=== PATIENT | male | born 2000 | race Hispanic/Latino ===

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

== ENCOUNTER 2022-06-22 13:52 | Emergency (ER) | payer BC, MEDICAID ==
[~2022-06-22] VITALS: Ht 175.3 cm; Wt 59.0 kg
[2022-06-22 14:48] VITALS: BP 108/74
== END 2022-06-22 14:45 | disposition home or self-care (01) ==
LOC: EDH 13:52
DX: H57.11 Ocular pain, right eye (principal)
CPT/HCPCS: 99282

== ENCOUNTER 2023-02-04 10:20 | Emergency (ER) | payer BC, MEDICAID ==
[~2023-02-04] VITALS: Ht 175.3 cm; Wt 57.6 kg
[2023-02-04 10:50] VITALS: BP 131/79
[2023-02-04] MEDS ORDERED: IBUPROFEN 600 MG TABLET PO ONE (11:30)
== END 2023-02-04 11:41 | disposition home or self-care (01) ==
LOC: EDH 10:20
DX: J06.9 Acute upper respiratory infection, unspecified (principal); S61.239A Puncture wound without foreign body of unspecified finger without damage to nail, initial encounter; Z20.822 Contact with and (suspected) exposure to COVID-19; X58.XXXA Exposure to other specified factors, initial encounter; Y93.89 Activity, other specified; Y92.89 Other specified places as the place of occurrence of the external cause; Y99.8 Other external cause status
CPT/HCPCS: 99283; 87635; 87880; 87804 ×2; C9803

== ENCOUNTER 2023-04-30 18:10 | Emergency (ER) | payer BC, MEDICAID ==
[~2023-04-30] VITALS: Ht 175.3 cm; Wt 59.0 kg
[2023-04-30 18:15] VITALS: BP 118/75
[2023-04-30] MEDS ORDERED: HYDR28.32 TP (19:57)
[2023-04-30] MEDS ORDERED: DIPH-1242 PO (19:58)
== END 2023-04-30 20:04 | disposition home or self-care (01) ==
LOC: EDH 18:10
DX: S00.86XA Insect bite (nonvenomous) of other part of head, initial encounter (principal); X58.XXXA Exposure to other specified factors, initial encounter
CPT/HCPCS: 99282

== ENCOUNTER 2024-04-28 17:54 | Emergency (ER) | payer BC ==
[~2024-04-28] VITALS: Ht 175.3 cm; Wt 59.0 kg
[~2024-04-28 17:54] MED LIST: DIPH-1242 PO; HYDR28.32 TP
[2024-04-28] MEDS: 0.9%NACL 1000ML 1,000 ML IV ONE (18:29)
[2024-04-28 18:46] LABS: BASOPHILS # (AUTO) 0.06 K/uL (0.00-0.20); BASOPHILS % (AUTO) 1.2 % (0.0-5.0); EOSINOPHILS # (AUTO) 0.16 K/uL (0.00-0.70); EOSINOPHILS % (AUTO) 3.1 % (0.0-8.0); HEMATOCRIT 41.7 % (42-54); IMMATURE GRANULOCYTE ABSOLUTE 0.01 K/uL (0-1); LYMPHOCYTES # (AUTO) 1.8 K/uL (1.0-4.8); LYMPHOCYTES % (AUTO) 35.6 % (21.0-51.0); MEAN CORPUSCULAR HEMOGLOBIN 27.8 pg (27.0-33.0); MEAN CORPUSCULAR HGB CONC 31.9 g/dL (32.0-36.0); MEAN CORPUSCULAR VOLUME 87.1 fL (80-100); MONOCYTES # (AUTO) 0.3 K/uL (0.1-1.0); MONOCYTES % (AUTO) 4.9 % (3.0-13.0); NEUTROPHILS # (AUTO) 2.8 K/uL (1.8-7.7); PLATELET COUNT (AUTO) 221 K/uL (130-400); RED BLOOD CELL COUNT(AUTO) 4.79 MIL/uL (4.50-6.20); RED CELL DISTRIBUTION WIDTH 13.9 % (11.0-15.5); WHITE BLOOD COUNT (AUTO) 5.1 K/uL (4.8-10.8)
[2024-04-28 19:00] LABS: POTASSIUM 3.6 mmol/L (3.5-5.1)
[2024-04-28 19:04] LABS: ALBUMIN 4.3 g/dL (3.5-5.0); BILIRUBIN,TOTAL 0.6 mg/dL (0.2-1.0); TOTAL PROTEIN, SERUM 7.7 g/dL (6.0-8.3)
[2024-04-28 19:06] LABS: APPEARANCE,URINE CLOUDY (CLEAR); BILIRUBIN,URINE NEGATIVE (NEGATIVE); COLOR,URINE YELLOW (YELLOW); GLUCOSE, URINE (UA) NEGATIVE (NEGATIVE); KETONES,URINE NEGATIVE (NEGATIVE); LEUKOCYTE ESTERASE ,URINE NEGATIVE Leu/uL (NEGATIVE); NITRATE,URINE NEGATIVE (NEGATIVE); OCCULT BLOOD,URINE NEGATIVE (NEGATIVE); PROTEIN,URINE 20 mg/dL (NEGATIVE)
[2024-04-28 19:08] LABS: ADD UA MICROSCOPIC YES
[2024-04-28 19:13] LABS: MUCUS,URINE RARE LPF (None Seen); SQUAMOUS EPITHELIAL CELL,UR RARE /HPF (0-2); UNCLASSIFIED CRYSTAL 5 /HPF (None Seen); YEAST,URINE BUDDING MOD /HPF (None Seen)
[2024-04-28 19:56] VITALS: BP 114/75; PULSE 60; RESP 18; O2SAT 100
== END 2024-04-28 20:18 | disposition home or self-care (01) ==
LOC: EDH 17:54
DX: E86.0 Dehydration (principal)
CPT/HCPCS: 99283; 96360; 82550; 80053; 85025; 87088; 81001; 36415; J7030

== ENCOUNTER 2024-05-30 17:01 | Emergency (ER) | payer BC ==
[~2024-05-30] VITALS: Ht 175.3 cm; Wt 59.0 kg
[2024-05-30 17:03] VITALS: BP 123/77; PULSE 98; RESP 16
[2024-05-30 17:19] LABS: BASOPHILS # (AUTO) 0.03 K/uL (0.00-0.20); BASOPHILS % (AUTO) 0.5 % (0.0-5.0); EOSINOPHILS # (AUTO) 0.19 K/uL (0.00-0.70); EOSINOPHILS % (AUTO) 3.2 % (0.0-8.0); HEMATOCRIT 41.3 % (42-54); IMMATURE GRANULOCYTE ABSOLUTE 0.01 K/uL (0-1); LYMPHOCYTES # (AUTO) 2.3 K/uL (1.0-4.8); LYMPHOCYTES % (AUTO) 38.8 % (21.0-51.0); MEAN CORPUSCULAR HEMOGLOBIN 27.3 pg (27.0-33.0); MEAN CORPUSCULAR HGB CONC 31.7 g/dL (32.0-36.0); MEAN CORPUSCULAR VOLUME 86.2 fL (80-100); MONOCYTES # (AUTO) 0.4 K/uL (0.1-1.0); MONOCYTES % (AUTO) 6.8 % (3.0-13.0); NEUTROPHILS % (AUTO) 50.5 % (40.0-77.0); PLATELET COUNT (AUTO) 220 K/uL (130-400); RED BLOOD CELL COUNT(AUTO) 4.79 MIL/uL (4.50-6.20); RED CELL DISTRIBUTION WIDTH 13.7 % (11.0-15.5); WHITE BLOOD COUNT (AUTO) 5.9 K/uL (4.8-10.8)
[2024-05-30 17:29] LABS: POTASSIUM 3.7 mmol/L (3.5-5.1)
[2024-05-30 17:34] LABS: ALBUMIN 4.1 g/dL (3.5-5.0); BILIRUBIN,TOTAL 0.4 mg/dL (0.2-1.0); TOTAL PROTEIN, SERUM 7.8 g/dL (6.0-8.3)
[2024-05-30] MEDS: 0.9%NACL 1000ML 1,000 ML IV STA (19:48)
[2024-05-30] MEDS: MECLIZINE HCL 25 MG TABLET PO STA (19:48)
== END 2024-05-30 20:23 | disposition home or self-care (01) ==
LOC: EDH 17:01
DX: R42 Dizziness and giddiness (principal); E16.2 Hypoglycemia, unspecified
CPT/HCPCS: 99284; 96360; 70450; 80053; 85025; 36415; J7030

== ENCOUNTER 2024-06-04 12:28 | Emergency (ER) | payer BC ==
[~2024-06-04] VITALS: Ht 175.3 cm; Wt 59.0 kg
[2024-06-04 13:16] LABS: BASOPHILS # (AUTO) 0.04 K/uL (0.00-0.20); EOSINOPHILS # (AUTO) 0.07 K/uL (0.00-0.70); EOSINOPHILS % (AUTO) 1.8 % (0.0-8.0); HEMATOCRIT 43.5 % (42-54); IMMATURE GRANULOCYTE ABSOLUTE 0.01 K/uL (0-1); LYMPHOCYTES # (AUTO) 1.3 K/uL (1.0-4.8); LYMPHOCYTES % (AUTO) 34.4 % (21.0-51.0); MEAN CORPUSCULAR HEMOGLOBIN 27.2 pg (27.0-33.0); MEAN CORPUSCULAR HGB CONC 32.4 g/dL (32.0-36.0); MONOCYTES # (AUTO) 0.2 K/uL (0.1-1.0); MONOCYTES % (AUTO) 5.7 % (3.0-13.0); NEUTROPHILS # (AUTO) 2.2 K/uL (1.8-7.7); NEUTROPHILS % (AUTO) 56.8 % (40.0-77.0); PLATELET COUNT (AUTO) 253 K/uL (130-400); RED BLOOD CELL COUNT(AUTO) 5.18 MIL/uL (4.50-6.20); WHITE BLOOD COUNT (AUTO) 3.8 K/uL (4.8-10.8)
[2024-06-04] MEDS: ONDANSETRON ODT 4MG TAB SL ONE (13:44)
[2024-06-04] MEDS: 0.9%NACL 1000ML 1,000 ML IV ONE (13:44)
[2024-06-04 13:55] LABS: ALBUMIN 4.2 g/dL (3.5-5.0); BILIRUBIN,TOTAL 0.6 mg/dL (0.2-1.0); CREATININE 0.9 mg/dL (0.5-1.3); POTASSIUM 3.7 mmol/L (3.5-5.1); TOTAL PROTEIN, SERUM 7.9 g/dL (6.0-8.3)
[2024-06-04] MEDS: KETOROLAC 15MG/ML VIAL (15MG/ML) IV ONE (15:43)
[2024-06-04 16:03] VITALS: BP 123/68; PULSE 86; RESP 18; O2SAT 99
== END 2024-06-04 16:06 | disposition home or self-care (01) ==
LOC: EDH 12:28
DX: R51.9 Headache, unspecified (principal); R11.0 Nausea; Z79.899 Other long term (current) drug therapy
CPT/HCPCS: 99284; 96374; 96361; 82550; 80053; 85025; 36415; J7030; J1885

== ENCOUNTER 2024-08-10 19:24 | Emergency (ER) | payer BC ==
[~2024-08-10] VITALS: Ht 175.3 cm; Wt 59.0 kg
[2024-08-10] MEDS: ibuPROFEN 600 MG TABLET PO ONE (21:56)
[2024-08-10 22:12] VITALS: BP 135/68; PULSE 86; RESP 16; TEMP 98; O2SAT 100
== END 2024-08-10 22:05 | disposition home or self-care (01) ==
LOC: EDH 19:24
DX: S90.122A Contusion of left lesser toe(s) without damage to nail, initial encounter (principal); W22.8XXA Striking against or struck by other objects, initial encounter; Y93.89 Activity, other specified; Y92.89 Other specified places as the place of occurrence of the external cause; Y99.8 Other external cause status
CPT/HCPCS: 73660

== ENCOUNTER 2024-09-16 17:29 | Emergency (ER) | payer BC, OTHER ==
[~2024-09-16] VITALS: Ht 175.3 cm; Wt 59.0 kg
[2024-09-16 17:36] VITALS: BP 139/71; PULSE 96; RESP 16; TEMP 99.5; O2SAT 97
[2024-09-16] MEDS ORDERED: MUPI22O TP (17:41)
[2024-09-16] MEDS: ibuPROFEN 800 MG TAB PO ONE (17:44)
== END 2024-09-16 17:56 | disposition home or self-care (01) ==
LOC: EDH 17:29
DX: S80.811A Abrasion, right lower leg, initial encounter (principal); X17.XXXA Contact with hot engines, machinery and tools, initial encounter; Y93.89 Activity, other specified; Y92.89 Other specified places as the place of occurrence of the external cause; Y99.8 Other external cause status

== ENCOUNTER 2025-05-01 15:14 | Emergency (ER) | payer BC ==
[~2025-05-01] VITALS: Ht 175.3 cm; Wt 61.8 kg
[~2025-05-01 15:14] MED LIST changes: +MUPI22O TP
[2025-05-01 15:52] LABS: BASOPHILS # (AUTO) 0.01 K/uL (0.00-0.20); BASOPHILS % (AUTO) 0.1 % (0.0-5.0); EOSINOPHILS # (AUTO) 0.06 K/uL (0.00-0.70); EOSINOPHILS % (AUTO) 0.7 % (0.0-8.0); HEMATOCRIT 45.8 % (42-54); IMMATURE GRANULOCYTE ABSOLUTE 0.03 K/uL (0-1); LYMPHOCYTES # (AUTO) 0.3 K/uL (1.0-4.8); LYMPHOCYTES % (AUTO) 3.7 % (21.0-51.0); MEAN CORPUSCULAR HEMOGLOBIN 27.1 pg (27.0-33.0); MEAN CORPUSCULAR HGB CONC 31.4 g/dL (32.0-36.0); MEAN CORPUSCULAR VOLUME 86.3 fL (79-99); MONOCYTES # (AUTO) 0.2 K/uL (0.1-1.0); MONOCYTES % (AUTO) 2.7 % (3.0-13.0); NEUTROPHILS # (AUTO) 7.6 K/uL (1.8-7.7); NEUTROPHILS % (AUTO) 92.4 % (40.0-77.0); PLATELET COUNT (AUTO) 225 K/uL (130-400); RED BLOOD CELL COUNT(AUTO) 5.31 MIL/uL (4.50-6.20); WHITE BLOOD COUNT (AUTO) 8.3 K/uL (4.8-10.8)
[2025-05-01 16:03] LABS: CREATININE 0.9 mg/dL (0.5-1.3)
[2025-05-01 16:06] LABS: RAPID GROUP A STREP negative (NEGATIVE)
[2025-05-01 16:15] LABS: COVID19 (SARS ANTIGEN RAPID) PRESUMPTIVE NEGATIVE (NEGATIVE); INFLUENZA TYPE A Negative For Type A (NEGATIVE); INFLUENZA TYPE B Negative For Type B (NEGATIVE)
[2025-05-01] MEDS: ondanSETRON ODT 4MG TAB SL ONE (16:32)
[2025-05-01] MEDS: PANTOPrazole 40 MG TAB DR PO ONE (16:32)
[2025-05-01] MEDS: 0.9%NACL 1000ML 1,000 ML IV ONE (17:02)
--- NOTE | 2025-05-01 18:49 | ERN ---
General Chief Complaint: Headache Stated Complaint: HEADACHE Time Seen by MD: 15:24 History of Present Illness Allergies: Coded Allergies: No Known Drug Allergies (Unverified Allergy, Unknown, 05/12/20) Home Meds Active Scripts Mupirocin (Bactroban 2% Oint) 2 % Oint, 1 APPL TP TID for 5 Days, #15 GM 0 Refills apply to affected area(s) Prov:JOÃO GUIDRY RUBY ON RAILS DEVELOPER 09/16/24 Diphenhydramine HCl (Benadryl) 25 Mg Cap, 25 MG PO TID for 7 Days, #21 CAP Prov:AFTAB RIVAS V EXPLOSIVE ORDNANCE SPECIALIST 04/30/23 Hydrocortisone (Hydrocortisone 1% 28.35GM) 28.35 Gm Crm, 1 GM TP BID for 10 Days, #1 TUBE Prov:AFTAB RIVAS V EXPLOSIVE ORDNANCE SPECIALIST 04/30/23 Past Medical History Past Medical History: Other Medical History Other: dehydration. ryne Past Surgical History: None Results Laboratory and Microbiology Lab and Micro Result Laboratory Tests Test 05/01/25 15:31 05/01/25 15:42 Influenza Type A Antigen Negative For Type A Influenza Type B Antigen Negative For Type B SARS-CoV-2 Antigen (Rapid) PRESUMPTIVE NEGATIVE Group A Streptococcus Rapid negative (NEGATIVE) White Blood Count 8.3 K/uL (4.8-10.8) Red Blood Count 5.31 MIL/uL (4.50-6.20) Hemoglobin 14.4 g/dL (14.0-18.0) Hematocrit 45.8 % (42-54) Mean Corpuscular Volume 86.3 fL (79-99) Mean Corpuscular Hemoglobin 27.1 pg (27.0-33.0) Mean Corpuscular Hemoglobin Concent 31.4 g/dL (32.0-36.0) L Red Cell Distribution Width 14.0 % (11.0-15.5) Platelet Count 225 K/uL (130-400) Mean Platelet Volume 9.8 fL (7.5-10.5) Immature Granulocyte % (Auto) 0.4 % (0-1) Neutrophils (%) (Auto) 92.4 % (40.0-77.0) H Lymphocytes (%) (Auto) 3.7 % (21.0-51.0) L Monocytes (%) (Auto) 2.7 % (3.0-13.0) L Eosinophils (%) (Auto) 0.7 % (0.0-8.0) Basophils (%) (Auto) 0.1 % (0.0-5.0) Neutrophils # (Auto) 7.6 K/uL (1.8-7.7) Lymphocytes # (Auto) 0.3 K/uL (1.0-4.8) L Monocytes # (Auto) 0.2 K/uL (0.1-1.0) Eosinophils # (Auto) 0.06 K/uL (0.00-0.70) Basophils # (Auto) 0.01 K/uL (0.00-0.20) Absolute Immature Granulocyte (auto 0.03 K/uL (0-1) Nucleated Red Blood Cells 0.0 % (0.0-0.19) White Cell Morphology Comment See comments Sodium Level 142 mmol/L (136-145) Potassium Level 4.0 mmol/L (3.5-5.1) Chloride Level 107 mmol/L (101-111) Carbon Dioxide Level 27 mmol/L (21-32) Blood Urea Nitrogen 14 mg/dL (7-18) Creatinine 0.9 mg/dL (0.5-1.3) Glomerular Filtration Rate Calc 124 mL/min (>90) Random Glucose 104 mg/dL (70-105) Total Calcium 9.2 mg/dL (8.5-10.1) ED Course Orders Procedure Category Date Status Time Cbc With Differential LAB 05/01/25 Complete 15:32 Basic Metabolic Panel LAB 05/01/25 Complete 15:32 Urinalysis LAB 05/01/25 Logged W/Microscopic 15:32 Covid19 (Sars Antigen LAB 05/01/25 Complete Rapid) 15:32 Influenza Type A & B, LAB 05/01/25 Complete Rapid 15:32 Rapid (Group A Strep) LAB 05/01/25 Complete 15:32 Pantoprazole 40mg Tab PHA 05/01/25 Complete (Protonix 40mg Tab 16:00 Ondansetron Odt 4mg PHA 05/01/25 Complete Tab (Zofran 4mg Odt) 16:00 0.9%Nacl 1000ml (Ns PHA 05/01/25 Complete 1000ml) 17:00 Current Medications Medications (Trade) Dose Ordered Sig/Saravanan Route PRN Reason Start Time Stop Time Status Last Admin Dose Admin Ondansetron HCl (zoFRAN 4MG ODT) 4 mg ONCE ONCE SL 05/01/25 16:00 05/01/25 16:03 DC 05/01/25 16:32 Pantoprazole Sodium (PROTonix 40MG TAB) 40 mg ONCE ONCE PO 05/01/25 16:00 05/01/25 16:03 DC 05/01/25 16:32 Sodium Chloride 1,000 ml @ 0 mls/hr ONCE ONCE IV 05/01/25 17:00 05/01/25 17:01 DC 05/01/25 17:02 Vital Signs Date Time Temp Pulse Resp B/P (MAP) Pulse Ox O2 Delivery O2 Flow Rate FiO2 05/01/25 15:30 99.3 95 16 100/68 99 Room Air* 0 21 05/01/25 15:26 99.3 95 16 100/68 99 Room Air 0 DX & DISP Disposition: Discharge Departure Impression: Primary Impression: Fatigue Additional Impression: Wellness examination Condition: Stable Additional Instructions: Discharge home. Rest. Follow up with primary care DrNevaeh in 24 hours. Return to the ER for any acute changes or worsening symptoms. If any medications were prescribed take as directed. Okay to continue home medications unless otherwise discussed during your visit in the emergency room today. Patient was also advised to follow-up with primary care physician in 1 to 2 days for continued monitoring. Referrals: MARTY ALCAZAR MD (PCP) I performed the substantive portion of the visit. I have reviewed and personally made and approve the management plan that is documented in the notes by myself or the [facility]. I acknowledge full responsibility for the patient's management plan. ANH ROBERSON May 01, 2025 18:49
[2025-05-01 18:56] VITALS: BP 114/65; PULSE 85; RESP 17; TEMP 97.6; O2SAT 96
== END 2025-05-01 18:59 | disposition home or self-care (01) ==
LOC: EDH 15:14
DX: R51.9 Headache, unspecified (principal); R53.83 Other fatigue; Z20.822 Contact with and (suspected) exposure to COVID-19
CPT/HCPCS: 99283; 96360; 87426; 80048; 85025; 87880; 87804 ×2; 36415; J7030

== ENCOUNTER 2025-07-05 17:40 | Emergency (ER) | payer BC ==
[~2025-07-05] VITALS: Ht 175.3 cm; Wt 59.0 kg
[2025-07-05 17:55] VITALS: BP 130/80; PULSE 78; RESP 16; TEMP 98.1; O2SAT 99
--- NOTE | 2025-07-05 18:00 | ERN ---
ED Note History of Present Illness Stated Complaint: NEAR SYNCOPE Chief Complaint: Other Problems Time Seen by MD: 17:42 Allergies: Coded Allergies: No Known Drug Allergies (Unverified Allergy, Unknown, 05/12/20) Home Meds Active Scripts Mupirocin (Bactroban 2% Oint) 2 % Oint, 1 APPL TP TID for 5 Days, #15 GM 0 Refills apply to affected area(s) Prov:JOÃO GUIDRY ASSOCIATE DIRECTOR 09/16/24 Diphenhydramine HCl (Benadryl) 25 Mg Cap, 25 MG PO TID for 7 Days, #21 CAP Prov:AFTAB RIVAS V CIGAR HEAD PEGGER 04/30/23 Hydrocortisone (Hydrocortisone 1% 28.35GM) 28.35 Gm Crm, 1 GM TP BID for 10 Days, #1 TUBE Prov:AFTAB RIVAS V CIGAR HEAD PEGGER 04/30/23 Past Medical History Past Medical History: No Pertinent History, Other Additional Past Medical Hx: dehydration. ryne Surgical History: None Review of System Dictation CONSTITUTIONAL: NEGATIVE FOR FEVER,CHILLS, AND WEIGHT LOSS EYES: NEGATIVE FOR INJURY, PAIN,REDNESS, AND DISCHARGE ENT: NEGATIVE FOR INJURY,PAIN OR SWELLING CARDIOVASCULAR: NEGATIVE FOR CHEST PAIN, PALPITATIONS, AND EDEMA RESPIRATORY: NEGATIVE FOR SHORTNESS OF BREATH, COUGH, WHEEZING, AND PLEURITIC CHEST PAIN ABDOMEN/GI: NEGATIVE FOR ABDOMINAL PAIN, NAUSEA, VOMITING, DIARRHEA, AND CONSTIPATION BACK: NEGATIVE FOR INJURY AND PAIN : NEGATIVE FOR INJURY, BLEEDING AND DISCHARGE MS/EXTREMITY: NEGATIVE FOR INJURY AND DEFORMITY SKIN: NEGATIVE FOR RASH, AND DISCOLORATION NEURO: NEGATIVE FOR HEADACHE, NUMBNESS, TINGLING, AND SEIZURE. POSITIVE WEAKNESS PSYCH: NEGATIVE FOR SUICIDE IDEATION, HOMICIDAL IDEATION, AND HALLUCINATIONS ALLERGY/IMMUNOLOGY: NEGATIVE FOR HIVES, RASH, AND ALLERGIES Initial Vital Sign VS Vital Signs Date Time Temp Pulse Resp B/P (MAP) Pulse Ox O2 Delivery O2 Flow Rate FiO2 07/05/25 17:41 97.7 81 18 131/82 99 Room Air 07/05/25 17:55 0 21 Physical Exam Dictation GENERAL: AWAKE, ALERT, NAD HEAD/FACE: NORMOCEPHALIC, ATRAUMATIC EYES: PERRL, EOMI, VISION AT BASELINE ENT: ORAL CAVITY CLEAR, TMS CLEAR, NO SIGNS OF INFECTION NECK: TRACHEA MIDLINE, SUPPLE, NO NUCHAL RIGIDITY CARDIOVASCULAR: RRR, NORMAL S1/S2, NO MRGS, NO JVD RESPIRATORY: CTAB, NO RESPIRATORY DISTRESS, NO RALES OR WHEEZES ABDOMEN: SOFT, NON-TENDER, NON-DISTENDED, NORMAL BOWEL SOUNDS, NO GUARDING OR REBOUND. SKIN: WARM, DRY, NORMAL TURGOR, NO RASH MS/EXTREMITY: PULSES EQUAL, NO CYANOSIS, NEUROVASCULAR INTACT, FROM NEURO: COAX4, GCS 15, STRENGTH 5/5, CN 2-12 INTACT, NORMAL CEREBELLAR EXAM, NORMAL GAIT, PSYCH: NORMAL BEHAVIOR, MOOD, AND AFFECT NORMAL Results (Laboratory/Radiology) Laboratory/Radiology Laboratory Tests Test 07/05/25 18:04 White Blood Count 6.0 K/uL (4.8-10.8) Red Blood Count 5.15 MIL/uL (4.50-6.20) Hemoglobin 14.0 g/dL (14.0-18.0) Hematocrit 43.4 % (42-54) Mean Corpuscular Volume 84.3 fL (79-99) Mean Corpuscular Hemoglobin 27.2 pg (27.0-33.0) Mean Corpuscular Hemoglobin Concent 32.3 g/dL (32.0-36.0) Red Cell Distribution Width 14.2 % (11.0-15.5) Platelet Count 239 K/uL (130-400) Mean Platelet Volume 9.6 fL (7.5-10.5) Immature Granulocyte % (Auto) 0.3 % (0-1) Neutrophils (%) (Auto) 49.0 % (40.0-77.0) Lymphocytes (%) (Auto) 26.6 % (21.0-51.0) Monocytes (%) (Auto) 5.3 % (3.0-13.0) Eosinophils (%) (Auto) 17.8 % (0.0-8.0) H Basophils (%) (Auto) 1.0 % (0.0-5.0) Neutrophils # (Auto) 3.0 K/uL (1.8-7.7) Lymphocytes # (Auto) 1.6 K/uL (1.0-4.8) Monocytes # (Auto) 0.3 K/uL (0.1-1.0) Eosinophils # (Auto) 1.07 K/uL (0.00-0.70) H Basophils # (Auto) 0.06 K/uL (0.00-0.20) Absolute Immature Granulocyte (auto 0.02 K/uL (0-1) Nucleated Red Blood Cells 0.0 % (0.0-0.19) White Cell Morphology Comment See comments Sodium Level 142 mmol/L (136-145) Potassium Level 4.0 mmol/L (3.5-5.1) Chloride Level 105 mmol/L (101-111) Carbon Dioxide Level 28 mmol/L (21-32) Blood Urea Nitrogen 14 mg/dL (7-18) Creatinine 1.0 mg/dL (0.5-1.3) Glomerular Filtration Rate Calc 109 mL/min (>90) Random Glucose 109 mg/dL (70-105) H Total Calcium 9.4 mg/dL (8.5-10.1) ED Course ED Course Orders Procedure Category Date Status Time Cbc With Differential LAB 07/05/25 Complete 17:57 Basic Metabolic Panel LAB 07/05/25 Complete 17:57 12 Lead Ekg Tracing- EKG 07/05/25 Logged Technical 17:57 Vital Signs Date Time Temp Pulse Resp B/P (MAP) Pulse Ox O2 Delivery O2 Flow Rate FiO2 07/05/25 17:55 98.1 78 16 130/80 99 Room Air* 0 21 07/05/25 17:41 97.7 81 18 131/82 99 Room Air HEART Score Response (Comments) Value EKG: Normal 0 Total 0 Medical Decision Making MDM 24-YEAR-OLD MALE PRESENTS TO ER COMPLAINS OF FEELING WEAK AT WORK. 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 PATIENT STATES HE WAS DRINKING WATER ALL DAY AND WAS TAKING BREAKS EVERY 30 MINUTES BUT IT WAS STILL HOT. PATIENT WILL GET CBC BMP AND AN EKG. ALL LABS AND EKG NORMAL. PATIENT ADVISED TO STAY WELL HYDRATED POSSIBLY DRINK GATORADE INSTEAD OF WATER AND TAKE MORE FREQUENT BREAKS. PATIENT VSS, NAD, NONTOXIC, STABLE FOR DISCHARGE. PT GIVEN DISCHARGE INSTRUCTIONS IN LAYMAN TERMS AND UNDERSTOOD, ALL QUESTIONS ANSWERED. PT WILL FOLLOW UP WITH PCP AND RETURN TO THE ER IF WORSE. DX & DISP Disposition: Discharge Departure Impression: Primary Impression: Near syncope Additional Impression: Heat exhaustion Condition: Stable Referrals: MARTY ALCAZAR MD (PCP) SHANTEL VELEZ NP Jul 05, 2025 18:00
[2025-07-05 18:10] LABS: IMMATURE GRANULOCYTE ABSOLUTE 0.02 K/uL (0-1); NUCLEATED RED BLOOD CELLS 0.0 % (0.0-0.19); PLATELET COUNT (AUTO) 239 K/uL (130-400); RED BLOOD CELL COUNT(AUTO) 5.15 MIL/uL (4.50-6.20); RED CELL DISTRIBUTION WIDTH 14.2 % (11.0-15.5); WHITE BLOOD COUNT (AUTO) 6.0 K/uL (4.8-10.8)
[2025-07-05 18:18] LABS: CREATININE 1.0 mg/dL (0.5-1.3); GLOMERULAR FILTR. RATE CALC 109.0 mL/min (>90); GLUCOSE,RANDOM 109.0 mg/dL (70-105); SODIUM SERUM 142.0 mmol/L (136-145); UREA NITROGEN, BLOOD 14.0 mg/dL (7-18)
--- NOTE | 2025-07-05 19:18 | EKG ---
[facility] Test Date: 2025-07-05 Test Time: 18:19:20 Pat Name: DYAN AVILES Department: ED Room: Gender: M Transmission Operator: [id number] : 2000 Requested By: SHANTEL VELEZ Order Number: [id number] Reading MD: Alistair Baez Measurements Intervals [place] Rate: 65 P: 34 AK: 145 QRS: 66 QRSD: 92 T: 49 QT: 381 QTc: 403 Interpretive Statements Sinus rhythm Atrial premature complex ST elev, probable normal early repol pattern No previous ECG available for comparison Electronically Signed On 07-07-2025 16:01:35 CDT by Alistair Baez Please click the below link to view image of tracing.
== END 2025-07-05 18:57 | disposition home or self-care (01) ==
LOC: EDH 17:40
DX: R55 Syncope and collapse (principal); T67.5XXA Heat exhaustion, unspecified, initial encounter; Z79.899 Other long term (current) drug therapy; X58.XXXA Exposure to other specified factors, initial encounter; Y93.89 Activity, other specified; Y92.89 Other specified places as the place of occurrence of the external cause; Y99.8 Other external cause status
CPT/HCPCS: 36415; 80048; 85025; 93005; 99284

== ENCOUNTER 2025-09-25 16:31 | Emergency (ER) | payer BC ==
[~2025-09-25] VITALS: Ht 172.7 cm; Wt 61.2 kg
--- NOTE | 2025-09-25 16:43 | ERN ---
ED Note History of Present Illness Stated Complaint: LEFT FLANK PAIN Chief Complaint: Flank Pain Time Seen by MD: 16:37 Dictation: PATIENT IS A 25-YEAR-OLD MALE COMING IN TODAY WITH A AN ONSET OF LEFT FLANK/BACK PAIN ONSET WAS YESTERDAY WHILE HE WAS AT WORK. HE STATES HE WENT OVER TO PICK SOMETHING UP. STATES HE FELT THE PAIN. HE DENIES ANY REFERRED PAIN TO HIS LOWER ABDOMEN NO FEVER NO CHILLS NO NAUSEA VOMITING NO HEMATURIA. DENIES ANY HISTORY OF KIDNEY STONES. HE HAS NOT TAKEN TO ARRIVAL Allergies: Coded Allergies: No Known Drug Allergies (Unverified Allergy, Unknown, 05/12/20) Home Meds Active Scripts Mupirocin (Bactroban 2% Oint) 2 % Oint, 1 APPL TP TID for 5 Days, #15 GM 0 Refills apply to affected area(s) Prov:JOÃO GUIDRY PRICE LISTER 09/16/24 Diphenhydramine HCl (Benadryl) 25 Mg Cap, 25 MG PO TID for 7 Days, #21 CAP Prov:AFTAB RIVAS V PRICE LISTER 04/30/23 Hydrocortisone (Hydrocortisone 1% 28.35GM) 28.35 Gm Crm, 1 GM TP BID for 10 Days, #1 TUBE Prov:AFTAB RIVAS V PRICE LISTER 04/30/23 Past Medical History Past Medical History: No Pertinent History, Other Additional Past Medical Hx: dehydration. ryne Surgical History: None RN Note Reviewed/Agreed w/PFSH: Yes Review of System Dictation CONSTITUTIONAL: NEGATIVE EXCEPT FOR HPI HEAD/FACE: NEGATIVE EXCEPT FOR HPI EENT: NEGATIVE EXCEPT FOR HPI RESPIRATORY: NEGATIVE EXCEPT FOR HPI GASTROINTESTINAL/ABDOMINAL: NEGATIVE EXCEPT FOR HPI GENITOURINARY: NEGATIVE EXCEPT FOR HPI MUSCULOSKELETAL: NEGATIVE EXCEPT FOR HPI RIGHT FLANK/LUMBAR PAIN INTEGUMENTARY: NEGATIVE EXCEPT FOR HPI NEUROLOGICAL/PSYCH: NEGATIVE EXCEPT FOR HPI HEMATOLOGIC/LYMPHATIC: NEGATIVE EXCEPT FOR HPI ALL SYSTEMS NEGATIVE, EXCEPT NOTED ABOVE. 13 POINT REVIEW OF SYSTEMS ASSESSED AND ALL NEGATIVE EXCEPT FOR ABOVE. Initial Vital Sign VS Vital Signs Date Time Temp Pulse Resp B/P (MAP) Pulse Ox O2 Delivery O2 Flow Rate FiO2 09/25/25 16:32 98.1 91 16 129/70 97 0 Physical Exam Dictation VITAL SIGNS REVIEWED GENERAL APPEARANCE: ALERT, ORIENTED X 3, MILD ACUTE DISTRESS, WELL DEVELOPED, NOURISHED. HEAD AND FACE: NON-TRAUMATIC. EYES: PERRL, PINK CONJUNCTIVAS, EYELID NO TRAUMA, ANTERIOR CHAMBER WITH ARCUS SENILIS. EARS: PINNAS INTACT AND NO SIGNS OF TRAUMA OR ERYTHEMA EAR CANALS CLEAR AND NO DISCHARGE TM NO ERYTHEMA NOSE: NO DISCHARGE, NO BLEEDING. OROPHARYNX: MOUTH NORMAL, TONGUE PINK, PHARYNX CLEAR,NO ERYTHEMA, TONSILS NO EXUDATES, NO ABSCESSES NOTED, MUCOUS MEMBRANE MOIST NECK: SUPPLE, NON-TENDER, NO THYROMEGALY, NO MASSES, NO JVD, NO BRUITS BREAST:DEFERRED CHEST:NO TENDERNESS, NO CREPITUS, NO PARADOXICAL MOVEMENT, NO RETRACTIONS LUNGS:CLEAR, WELL-VENTILATED, SYMMETRIC, NO RALES, NO WHEEZING, NO RHONCHI, NO STRIDOR, GOOD BREATH SOUNDS BILATERALLY HEART: REGULAR RATE, REGULAR RHYTHM, NO MURMUR, NO GALLOPS VASCULAR: NO PERIPHERAL EDEMA, ABDOMEN: SOFT, POSITIVE BOWEL SOUNDS, NONDISTENDED, NO GUARDING, NONTENDER, NO REBOUND, NO MASSES NO HEPATOMEGALY, NO SPLENOMEGALY, NO DIAL'S SIGN, NO HERNIAS. NEGATIVE CVAT BILATERALLY RECTAL: DEFERRED GENITAL: DEFERRED NEUROLOGICAL: NORMAL SPEECH, MOTOR FUNCTION INTACT, SENSORY FUNCTION INTACT MUSCULOSKELETAL: NECK NONTENDER, FULL RANGE OF MOTION, MILD LEFT LATERAL LUMBOSACRAL TENDERNESS., FULL RANGE OF MOTION, EXTREMITIES: NONTENDER, FULL RANGE OF MOTION SKIN: COLOR PINK, DRY, NO TURGOR, NO RASH, NO LACERATIONS, NO ABRASIONS, NO CONTUSIONS. LYMPHATIC: DEFERRED Results (Laboratory/Radiology) Laboratory/Radiology Laboratory Tests Test 09/25/25 21:08 Urine Color LIGHT-YELLOW (YELLOW) Urine Appearance CLEAR (CLEAR) Urine pH 6.0 (5.0-8.0) Urine Specific [place] 1.020 (1.001-1.031) Urine Protein NEGATIVE mg/dL (NEGATIVE) Urine Glucose (UA) NEGATIVE mg/dL (NEGATIVE) Urine Ketones NEGATIVE mg/dL (NEGATIVE) Urine Occult Blood NEGATIVE (NEGATIVE) Urine Nitrate NEGATIVE (NEGATIVE) Urine Bilirubin NEGATIVE mg/dL (NEGATIVE) Urine Urobilinogen 0.2 mg/dL (0.2-1.0) Urine Leukocyte Esterase NEGATIVE Merlin/uL Labs Reviewed?: Yes ED Course ED Course Orders Procedure Category Date Status Time Urinalysis Profile LAB 09/25/25 Complete 16:41 Ibuprofen 800 Mg Tab PHA 09/25/25 Complete (Motrin) 17:00 Ibuprofen 800 Mg Tab PHA 09/25/25 Complete (Motrin) 21:05 Current Medications Medications (Trade) Dose Ordered Sig/Saravanan Route PRN Reason Start Time Stop Time Status Last Admin Dose Admin Ibuprofen (moTRIN) 800 mg ONCE ONCE PO 09/25/25 17:00 09/25/25 17:01 DC 09/25/25 21:09 Ibuprofen (moTRIN) 800 mg STK-MED ONCE .ROUTE 09/25/25 21:05 09/25/25 21:05 DC Vital Signs Date Time Temp Pulse Resp B/P (MAP) Pulse Ox O2 Delivery O2 Flow Rate FiO2 09/25/25 16:32 98.1 91 16 129/70 97 0 2135/URINE IS NEGATIVE INCLUDING HEMATURIA. NO IMAGING INDICATED PATIENT DISCHARGED HOME WITH LUMBAR PAIN Medical Decision Making MDM MEDICAL DISCHARGE MAKING BASED ON URINALYSIS TO DIFFERENTIATE MUSCULAR VERSUS GENITOURINARY PAIN. URINE IS NEGATIVE TO INCLUDE HEMATURIA PATIENT DISCHARGED HOME WITH LUMBAR PAIN IBUPROFEN PRESCRIBED AND HAVE PATIENT FOLLOW UP WITH HIS PRIMARY CARE DOCTOR DX & DISP Disposition: Discharge Departure Impression: Primary Impression: Acute lumbar back pain Condition: Stable Scripts Ibuprofen (Ibuprofen) 600 Mg Tablet 600 MG PO Q6H PRN for PAIN, #30 TAB Prov: JOÃO GUIDRY 09/25/25 Additional Instructions: FOLLOW-UP WITH PRIMARY CARE PROVIDER IN 1 TO 2 DAYS. TAKE MEDICATIONS DIRECTED HERE IN THE EMERGENCY ROOM. OKAY TO CONTINUE HOME MEDICATIONS UNLESS OTHERWISE DISCUSSED DURING YOUR VISIT IN THE EMERGENCY ROOM TODAY. RETURN TO YOUR NEAREST EMERGENCY ROOM IF SYMPTOMS WORSEN OR IF THERE IS NO IMPROVEMENT. CALL 911 IF YOU NEED IMMEDIATE ASSISTANCE. TAKE TYLENOL OR MOTRIN [id number] NEEDED AND IF NO CONTRAINDICATIONS ARE PRESENT. INCREASE ORAL HYDRATION. A WOUND CULTURE OR URINE CULTURE WAS ORDERED HERE IN THE EMERGENCY ROOM DEPARTMENT PLEASE FOLLOW-UP WITH PRIMARY CARE PROVIDER AND ADVISE THEM TO GET REPEAT PORTS FROM OUR FACILITY. IF YOU HAD ANY ANGUS WRAP/SPLINTS THAT WERE APPLIED HERE, PLEASE DO NOT REMOVE THEM UNTIL YOU SEE YOUR PRIMARY CARE OR SPECIALTY. TAKE IBUPROFEN EVERY 8 HOURS NEEDED FOR PAIN WITH FOOD. WARM COMPRESSES TO BACK THREE TO 4 TIMES A DAY. NO WORK UNTIL CLEARED BACK BY YOUR PRIMARY CARE DOCTOR IN 1-2 DAYS. Referrals: MARTY ALCAZAR MD (PCP) JOÃO GUIDRY Sep 25, 2025 16:43
[2025-09-25 21:17] LABS: APPEARANCE,URINE CLEAR (CLEAR); GLUCOSE, URINE (UA) NEGATIVE (NEGATIVE); LEUKOCYTE ESTERASE ,URINE NEGATIVE Leu/uL (NEGATIVE); NITRATE,URINE NEGATIVE (NEGATIVE); OCCULT BLOOD,URINE NEGATIVE (NEGATIVE)
[2025-09-25 21:19] LABS: ADD UA MICROSCOPIC NO
[2025-09-25] MEDS ORDERED: IBUP-1492 PO (21:36)
[2025-09-25 22:10] VITALS: BP 122/76; PULSE 88; RESP 16; TEMP 98.1; O2SAT 99
== END 2025-09-25 22:11 | disposition home or self-care (01) ==
LOC: EDH 16:31
DX: M54.50 Low back pain, unspecified (principal); Z79.899 Other long term (current) drug therapy
CPT/HCPCS: 81003; 99283